=== PATIENT | female | born 1965 | race Caucasian/White ===

== ENCOUNTER → 2016-08-21 | Outpatient (CLI) | payer OTHER ==
[~2016-08-21] MED LIST: AMOXICILLIN 8751 TAB PO; CIPRO 500MG TA500 MG PO; LORTAB 5/500 501 TAB PO; MOTRIN 800800 MG/TAB PO; NO HOME MEDICATIONS; NORCO 325 MG-51 TAB PO; PEPCID 20MG TAB20 MG PO; PERCOCET 325 MG1 TA2 PO
== END ==
LOC: MC.RAD 10:41
DX: Z12.31 Encounter for screening mammogram for malignant neoplasm of breast (principal)

== ENCOUNTER 2017-04-23 06:27 | Day surgery (SDC) | payer OTHER ==
[~2017-04-23] VITALS: Ht 157.5 cm; Wt 86.0 kg
[2017-04-23] MEDS ORDERED: ULTRAM 50MG TAB50 MG PO (06:45)
[2017-04-23] MEDS ORDERED: TYLENOL 500MG500 MG PO (06:45)
[2017-04-23] MEDS ORDERED: MULTI VITAMINS1 TAB PO (06:46)
[2017-04-23 06:59] VITALS: BP 132/88; PULSE 66; TEMP 97.9
[2017-04-23 08:15] VITALS: BP 126/84; PULSE 77; TEMP 98
[2017-04-23 08:30] VITALS: BP 114/78; PULSE 70
[2017-04-23 08:45] VITALS: BP 105/76; PULSE 60
[2017-04-23 08:55] VITALS: BP 105/69; PULSE 74
[2017-04-23 11:59] VITALS: BP 142/92; PULSE 87
== END 2017-04-23 09:05 | disposition home or self-care (01) ==
LOC: SDCO 06:27
DX: Z12.11 Encounter for screening for malignant neoplasm of colon (principal); D12.3 Benign neoplasm of transverse colon; K21.9 Gastro-esophageal reflux disease without esophagitis; Z68.32 Body mass index [BMI] 32.0-32.9, adult
CPT/HCPCS: OP; J2250; J2405; J3010; J7030

== ENCOUNTER → 2018-10-21 | Outpatient (CLI) | payer OTHER ==
[~2018-10-21] MED LIST changes: +MULTI VITAMINS1 TAB PO; +TYLENOL 500MG500 MG PO; +ULTRAM 50MG TAB50 MG PO
== END ==
LOC: MC.RAD 09-09 09:00
DX: Z12.31 Encounter for screening mammogram for malignant neoplasm of breast (principal); N63.10 Unspecified lump in the right breast, unspecified quadrant

== ENCOUNTER → 2019-10-27 | Outpatient (CLI) | payer OTHER | LOC: MC.RAD 13:27 | DX: Z12.31 Encounter for screening mammogram for malignant neoplasm of breast (principal) ==

== ENCOUNTER → 2020-11-15 | Outpatient (CLI) | payer OTHER | LOC: MC.RAD 10:11 | DX: Z12.31 Encounter for screening mammogram for malignant neoplasm of breast (principal) ==

== ENCOUNTER → 2021-11-28 | Outpatient (CLI) | payer OTHER | LOC: MC.RAD 09:42 | DX: Z12.31 Encounter for screening mammogram for malignant neoplasm of breast (principal) ==

== ENCOUNTER 2022-05-28 06:23 | Day surgery (SDC) | payer OTHER ==
[~2022-05-28] VITALS: Ht 157.5 cm; Wt 88.5 kg
[2022-05-28] MEDS ORDERED: ZESTRIL2.5 MG PO (07:07)
[2022-05-28 08:05] VITALS: BP 118/71; PULSE 65; TEMP 98.4
--- NOTE | 2022-05-28 08:05 | NUR ---
0805 PATIENT RETURNS TO ROOM 1 VIA CART. PATIENT IS DROWSY BUT ALERTS TO VERBAL STIMULI. PATIENT AMBULATES TO RECLINER WITH THE ASSISTANCE OF 2 NURSES. RESPIRATIONS EVEN AND UNLABORED. VITAL SIGNS OBTAINED. PATIENT IS IN ROOM. PATIENT DOES NOT WANT ANYTHING TO EAT OR DRINK AT THIS TIME. 0820 THIS NURSE REVIEWED DISCHARGE INSTRUCTIONS WITH PATIENT AND PATIENT . BOTH VERBALIZED UNDERSTANDING. 0825 DISCONTINUED IV FROM RIGHT FOREARM WITH NO DIFFICULTIES. 0830 DOCTOR IN ROOM TO SPEAK WITH PATIENT. 0835 PATIENT DISCHARGES FROM UNIT VIA WHEELCHAIR IN STABLE CONDITION.
[2022-05-28 08:20] VITALS: BP 111/71; PULSE 62
[2022-05-28 08:35] VITALS: BP 117/73; PULSE 62
[2022-05-28 10:16] VITALS: BP 135/80; PULSE 71; TEMP 98.1
== END 2022-05-28 08:35 | disposition home or self-care (01) ==
LOC: SDCO 06:23
DX: Z12.11 Encounter for screening for malignant neoplasm of colon (principal); K57.30 Diverticulosis of large intestine without perforation or abscess without bleeding; Z86.010 Personal history of colon polyps
CPT/HCPCS: J2704

== ENCOUNTER → 2022-11-13 | Outpatient (CLI) | payer OTHER ==
[~2022-11-13] MED LIST changes: +ZESTRIL2.5 MG PO
== END ==
LOC: MC.RAD 09:13 → COL.RAD 09:13
DX: Z12.31 Encounter for screening mammogram for malignant neoplasm of breast (principal)

== ENCOUNTER → 2023-12-31 | Outpatient (CLI) | payer OTHER | LOC: MC.RAD 10:30 | DX: Z12.31 Encounter for screening mammogram for malignant neoplasm of breast (principal) ==